=== PATIENT | female | born 1940 ===

== ENCOUNTER 2021-01-11 14:00 | Outpatient (CLI) | payer MEDICARE, BC | END 2021-01-11 14:01 | disposition home or self-care (01) | LOC: COV 14:00 | PROVIDERS: ATTEND Family Medicine | DX: Z20.822 Contact with and (suspected) exposure to COVID-19 (principal) ==

== ENCOUNTER 2022-05-18 15:16 | Emergency (ER) | payer MEDICARE, OTHER ==
[2022-05-18 15:28] VITALS: BP 167/77
[2022-05-18] MEDS ORDERED: predniSONE 20 MG TABLET PO STA (15:46)
--- NOTE | 2022-05-18 15:48 | ED Physician Documentation ---
History of Present Illness - Stated complaint Stated Complaint: REACTION TO CHEMO - Chief complaint Chief Complaint: Allergic Rx - History obtained from History obtained from: Patient - Additonal information Additional information: 81-year-old woman who has been getting chemotherapy and immunotherapy for breast cancer. She had a recurrent rash on her face associated with the chemotherapy. It has been responsive to steroids. Her last infusion was about 11 days ago. Current rash started 2 days ago and is worse today. She tried to get a hold of her oncologist to prescribe her steroids but they were not available. PD PAST MEDICAL HISTORY - Present Medications Home Medications: Ambulatory Orders Medication Instructions Recorded Confirmed predniSONE [Deltasone] 20 mg PO [id number] #21 tab 05/18/22 - Allergies Allergies/Adverse Reactions: Allergies Allergy/AdvReac Type Severity Reaction Status Date / Time Sulfa (Sulfonamide Allergy Unknown Verified 05/18/22 15:29 Antibiotics) PD ED PE NORMAL - Vitals Vital signs reviewed: Yes - General General: Alert and oriented X 3, No acute distress - HEENT HEENT: Other (Diffuse redness of the cheeks sparing the forehead, oropharynx normal.) - Derm Derm: No rash (Other than the face) - Neuro Neuro: Alert and oriented X 3, Normal speech Results - Vitals Vitals: Vital Signs - 24 hr 05/18/22 15:24 Temperature 37.0 C Heart Rate 65 Respiratory 18 Rate Blood Pressure 167/77 H O2 Saturation 97 Oxygen O2 Source Room air PD Medical Decision Making - ED course ED course: She is on immunotherapy, specifically [id number]. I discussed this with her son who is a pharmacist who agrees and we will restart steroids. Departure - Departure Disposition: 01 Home, Self Care Clinical Impression: History of immunotherapy, Rash Condition: Good Record reviewed to determine appropriate education?: Yes Instructions: ED Allergic Reaction General Other Prescriptions: predniSONE [Deltasone] 20 mg PO [id number] #21 tab Comments: I sent your prescription electronically to [facility] in [place]. Call your doctor to arrange a follow-up appointment, make the next available appointment. In the interim, return anytime if worse or if new symptoms develop.
== END 2022-05-18 16:09 | disposition home or self-care (01) ==
LOC: ED 15:16
DX: R21 Rash and other nonspecific skin eruption (principal); T50.995A Adverse effect of other drugs, medicaments and biological substances, initial encounter; C50.919 Malignant neoplasm of unspecified site of unspecified female breast
CPT/HCPCS: 99282; 99284; J7512